=== PATIENT | male | born 1985 | race Caucasian/White ===

== ENCOUNTER 2017-09-30 22:19 | Emergency (ER) | payer BC, OTHER ==
[2017-09-30 22:29] VITALS: BP 123/74; PULSE 60; RESP 16; TEMP 98.5
--- NOTE | 2017-09-30 22:43 | ED ---
Upper Extremity HPI - General Chief Complaint: Extremity Injury, Upper Stated Complaint: Fall, Wrist Injury Time Seen by Provider: 09/30/17 22:32 Source: patient Mode of arrival: ambulatory Limitations: no limitations - History of Present Illness Initial Comments: 31-year-old male patient presents to the emergency department today for evaluation of left wrist pain. Patient states that he was ice skating yesterday when he slipped and fell backwards, he states he did extend his hand out behind him to catch his fall. He states that he landed palm down. He states he has been having pain to the left wrist since then. Patient states he does have full range of motion however it hurts when he flexes the wrist. He denies any numbness or tingling to the hand. He denies hitting his head or losing consciousness during the fall. Denies any other injuries. Patient denies any headache, neck pain, back pain, chest pain, shortness of breath, dizziness, weakness, abdominal pain, nausea, vomiting, or difficulties with bowel movements or urination. - Related Data Home Medications Medication Instructions Recorded Confirmed No Known Home Medications [No 09/30/17 09/30/17 Known Home Medications] Allergies Allergy/AdvReac Type Severity Reaction Status Date / Time No Known Allergies Allergy Verified 09/30/17 22:29 Review of Systems ROS Statement: Those systems with pertinent positive or pertinent negative responses have been documented in the HPI. ROS Other: All systems not noted in ROS Statement are negative. Past Medical History Additional Past Medical History / Comment(s): possible ms, ddd, ulcers, kidney stones History of Any Multi-Drug Resistant Organisms: None Reported Past Surgical History: Ear Surgery Past Psychological History: No Psychological Hx Reported Smoking Status: Former smoker Past Alcohol Use History: None Reported Past Drug Use History: None Reported General Exam Limitations: no limitations General appearance: alert, in no apparent distress, other (This is a well- developed, well-nourished adult male patient in no acute distress. Vital signs upon presentation are temperature 98.5F, pulse 60, respirations 16, blood pressure 123/74, pulse ox 98% on room air.) Head exam: Present: atraumatic, normocephalic, normal inspection Eye exam: Present: normal appearance, PERRL, EOMI. Absent: scleral icterus, conjunctival injection, periorbital swelling Neck exam: Present: normal inspection, full ROM, other (Nontender, no step-off, no deformity to firm midline palpation of the posterior cervical spine. Full range of motion without pain or limitation.). Absent: tenderness, meningismus, lymphadenopathy Respiratory exam: Present: normal lung sounds bilaterally. Absent: respiratory distress, wheezes, rales, rhonchi, stridor Cardiovascular Exam: Present: regular rate, normal rhythm, normal heart sounds. Absent: systolic murmur, diastolic murmur, rubs, gallop, clicks Extremities exam: Present: normal inspection, full ROM, tenderness (tenderness over the dorsal aspect of the left wrist. No anatomical snuffbox tenderness.), normal capillary refill, other (Skin to the hand is pink, warm, and dry. Cap refills less than 3 seconds. Radial pulses are 2+ and equal bilaterally.). Absent: pedal edema, joint swelling, calf tenderness Back exam: Present: normal inspection, other (Nontender, no step-off, no deformity to firm midline palpation of the thoracic and lumbar vertebrae. Full range of motion without pain or limitation.). Absent: vertebral tenderness Neurological exam: Present: alert, oriented X3, CN II-XII intact Psychiatric exam: Present: normal affect, normal mood Skin exam: Present: warm, dry, intact, normal color. Absent: rash Course Vital Signs 09/30/17 22:27 Temperature 98.5 F Pulse Rate 60 Respiratory 16 Rate Blood Pressure 123/74 O2 Sat by Pulse 98 Oximetry Medical Decision Making - Medical Decision Making 31-year-old mail patient presented for evaluation of left wrist injury. Physical examination was unremarkable, patient did not have any anatomical snuffbox tenderness.patient did have full range of motion. Neurovascular status was intact. X-ray showed no acute fracture nor dislocation. Scaphoid is intact. Patient will be placed in an Livan wrap. He is instructed to have repeat x-rays performed in 7-10 days if pain symptoms persist. He is instructed to return here immediate relief for any new, worsening, or concerning symptoms. He verbalizes understanding and agrees this plan. - Radiology Data Radiology results: report reviewed, image reviewed 4 views of the left wrist shows no fracture nor dislocation. Joint spaces are normal. Scaphoid is intact. Impression by Dr. Fofana shows negative left wrist exam. Disposition Clinical Impression: Left wrist sprain Disposition: HOME SELF-CARE Condition: Good Instructions: Wrist Injury (ED), Wrist Sprain (ED) Additional Instructions: Rest, ice, and elevate the wrist. Use Livan wrap for comfort and support. Take ibuprofen and Tylenol for pain control. Follow-up with your primary care physician for recheck in 7-10 days if symptoms aren't improved. Return here immediately for any new, worsening, or concerning symptoms. Referrals: Timbo Bell MD [Primary Care Provider] - 1-2 days Time of Disposition: 22:49
--- NOTE | 2017-09-30 22:47 | XR ---
EXAMINATION TYPE: XR wrist complete LT DATE OF EXAM: 09/30/2017 COMPARISON: NONE HISTORY: Pain and swelling TECHNIQUE: 4 views FINDINGS: I see no fracture nor dislocation. Joint spaces are normal. Scaphoid is intact. IMPRESSION: Negative left wrist exam
== END 2017-09-30 23:00 | disposition home or self-care (01) ==
LOC: EC 22:19 → MERGE 22:19 → EC 23:00
DX: S63.502A Unspecified sprain of left wrist, initial encounter (principal); Z87.891 Personal history of nicotine dependence; V00.211A Fall from ice-skates, initial encounter; Y93.21 Activity, ice skating
CPT/HCPCS: 99283

== ENCOUNTER → 2021-02-02 | Outpatient (CLI) | payer BC | END | disposition home or self-care (01) | LOC: LABWHC1 15:56 | PROVIDERS: ATTEND Emergency Medicine | DX: Z20.822 Contact with and (suspected) exposure to COVID-19 (principal) | CPT/HCPCS: U0003; C9803 ==